=== PATIENT | male | born 1960 | race Two or more races ===

== ENCOUNTER 2018-12-30 10:18 | Day surgery (SDC) | payer OTHER ==
[2018-12-30] MEDS: CYCLOPENTOLATE 1% 2 ML OPH OPER (11:05)
[2018-12-30] MEDS: TROPICAMIDE 1% 15 ML OPH OPER (11:05)
[2018-12-30] MEDS: MOXIFLOXACIN 0.5% 3 ML OPH OPER (11:05)
[2018-12-30] MEDS: NEPAFENAC 0.1% 3 ML OPH OPER (11:07)
[2018-12-30] MEDS: PHENYLephrine 2.5% 15 ML OPH OPER (11:08)
[2018-12-30] MEDS: LACTATED RINGER'S 1,000 ML IV (11:18)
[2018-12-30] MEDS ORDERED: MIDAZOLAM 1 MG/ML 2 ML INJ (12:10)
[2018-12-30] MEDS: LIDOCAINE 1.5%/EPI MPF (SDV) 30 ML VIAL (12:22)
[2018-12-30] MEDS: TIMOLOL MALEATE/PF 0.5% OCCUDOSE (0.3 ML) (12:22)
[2018-12-30] MEDS ORDERED: TOBRAMYCIN/DEXAMETH 2.5 ML OPH (12:22)
[2018-12-30] MEDS ORDERED: FENTAnyl 50 MCG/ML VIAL (12:27)
[2018-12-30] MEDS ORDERED: HYDROmorphONE 1 MG/5 ML IV SYRINGE IV (12:30)
[2018-12-30] MEDS ORDERED: DIPHENHYDRAMINE 50 MG INJ IV (12:30)
[2018-12-30] MEDS ORDERED: PROCHLORPERAZINE 10 MG INJ IV (12:30)
[2018-12-30] MEDS ORDERED: MEPERIDINE 25 MG INJ IV (12:30)
[2018-12-30] MEDS ORDERED: ONDANSETRON 4 MG INJ IV (12:30)
[2018-12-30] MEDS ORDERED: FENTAnyl 50 MCG/ML VIAL IV (12:30)
[2018-12-30] MEDS ORDERED: OXYCODONE/ACETAMINOPHEN (5/325) TAB PO (12:30)
[2018-12-30] MEDS: TOBRAMYCIN/DEXAMETH 3.5 GM OPH OINT (12:46)
== END 2018-12-30 14:21 | disposition home or self-care (01) ==
LOC: SDS 10:18
DX: H25.12 Age-related nuclear cataract, left eye (principal)
CPT/HCPCS: 66984